=== PATIENT | female | born 1950 | race Caucasian/White ===

== ENCOUNTER 2024-01-07 17:44 | Observation (INO) | payer OTHER ==
[2024-01-07] MEDS ORDERED: ACETAMINOPHEN INJECTION 100 ML IVPB ONE (20:42)
[2024-01-07] MEDS ORDERED: METOCLOPRAMIDE HCL INJECTION 10 MG/2 ML VIAL ONE (20:42)
[2024-01-07] MEDS: ACETAMINOPHEN 1000 MG/100 ML BAG IVPB ONE (21:11)
[2024-01-07] MEDS: METOCLOPRAMIDE HCL INJECTION 10 MG/2 ML VIAL IVPUSH ONE (21:12)
[2024-01-07 21:22] LABS: BASO % 0.6 % (0-2.0); EOS % 0.9 % (0-4.5); HEMATOCRIT 38.5 % (32.4-45.2); HEMOGLOBIN 13.3 GM/dL (10.7-15.3); LYMPH % 23.1 % (8-40); MCH 29.9 pg (25.7-33.7); MCHC 34.5 g/dl (32.0-36.0); MEAN CELL VOLUME 86.5 fl (80-96); MEAN PLT VOLUME 7.2 fl (7.5-11.1); MONO % 8.8 % (3.8-10.2); NEUT % 66.6 % (42.8-82.8); PLATELET COUNT 261 10^3/uL (134-434); RBC 4.45 M/mm3 (3.60-5.2); RDW 14.4 % (11.6-15.6)
[2024-01-07] MEDS ORDERED: VALSARTAN 80 MG TABLET ONE (21:36)
[2024-01-07 21:40] LABS: POTASSIUM 4.7 mmol/L (3.5-5.1)
[2024-01-07 21:42] LABS: CALCIUM 9.8 mg/dL (8.5-10.1)
[2024-01-07 21:43] LABS: BLOOD UREA NITROGEN 12.9 mg/dL (7-18)
[2024-01-07 21:46] LABS: CREATININE 0.8 mg/dL (0.55-1.3)
[2024-01-07 21:48] LABS: BILIRUBIN,TOTAL 0.6 mg/dL (0.2-1); TOT PROT 7.7 g/dl (6.4-8.2)
[2024-01-07] MEDS: SODIUM CHLORIDE 0.9% 500 ML INFUS.BAG IV ONE (21:48)
[2024-01-07] MEDS: VALSARTAN 40 MG TABLET PO ONE (22:27)
[2024-01-08 07:46] LABS: POTASSIUM 4.2 mmol/L (3.5-5.1)
[2024-01-08 07:51] LABS: BLOOD UREA NITROGEN 10.2 mg/dL (7-18)
[2024-01-08 07:53] LABS: CALCIUM 9.1 mg/dL (8.5-10.1); MAGNESIUM 1.7 mg/dL (1.8-2.4)
[2024-01-08 07:54] LABS: CREATININE 0.7 mg/dL (0.55-1.3)
[2024-01-08] MEDS ORDERED: ONDANSETRON *ODT* 4 MG TABLET SL PRN (08:01)
[2024-01-08 08:12] LABS: BASO % 0.5 % (0-2.0); EOS % 1.1 % (0-4.5); HEMATOCRIT 36.3 % (32.4-45.2); HEMOGLOBIN 12.4 GM/dL (10.7-15.3); LYMPH % 31.2 % (8-40); MCHC 34.2 g/dl (32.0-36.0); MEAN CELL VOLUME 87.9 fl (80-96); MEAN PLT VOLUME 8.2 fl (7.5-11.1); MONO % 10.5 % (3.8-10.2); NEUT % 56.7 % (42.8-82.8); PLATELET COUNT 218 10^3/uL (134-434); RBC 4.13 M/mm3 (3.60-5.2); RDW 14.1 % (11.6-15.6); WHITE BLOOD COUNT 4.9 K/mm3 (4.0-10.0)
[2024-01-08] MEDS: amLODIPine BESYLATE 5 MG TABLET (FP) PO SCH (09:23)
[2024-01-08] MEDS ORDERED: LOSARTAN POTASSIUM 50 MG TABLET PO SCH (10:00)
[2024-01-08 11:06] LABS: URINE APPEARANCE CLEAR; URINE BILIRUBIN NEGATIVE (NEGATIVE); URINE COLOR YELLOW; URINE GLUCOSE (UA) 3+ (NEGATIVE); URINE KETONE NEGATIVE (NEGATIVE); URINE LEUK ESTERASE NEGATIVE (NEGATIVE); URINE NITRITE NEGATIVE (NEGATIVE); URINE PROTEIN NEGATIVE (NEGATIVE); URINE UROBILINOGEN 0.2 mg/dL (0.2-1.0)
[2024-01-08] MEDS: LOSARTAN POTASSIUM 50 MG TABLET PO SCH (11:10)
[2024-01-08] MEDS: MAGNESIUM SULFATE IN WATER 2 GM/50 ML IVPB IVPB ONE (11:11)
[2024-01-08] MEDS: SODIUM CHLORIDE 1,000 ML IV SCH (11:11)
[2024-01-08] MEDS: ACETAMINOPHEN 325 MG TABLET (FP) PO PRN (14:45)
[2024-01-08 16:41] VITALS: BMI 26.2
[2024-01-08 16:59] LABS: N-TERMINAL BNP 164.2 pg/ml (5-450)
[2024-01-08] MEDS: ATORVASTATIN CA 20 MG TABLET (FP) PO SCH (21:52)
[2024-01-09 07:46] LABS: HEMATOCRIT 36.7 % (32.4-45.2); HEMOGLOBIN 12.7 GM/dL (10.7-15.3); MCH 30.5 pg (25.7-33.7); MCHC 34.7 g/dl (32.0-36.0); MEAN CELL VOLUME 87.8 fl (80-96); MEAN PLT VOLUME 7.2 fl (7.5-11.1); PLATELET COUNT 232 10^3/uL (134-434); RBC 4.18 M/mm3 (3.60-5.2); RDW 14.4 % (11.6-15.6)
[2024-01-09 08:13] LABS: CALCIUM 9.3 mg/dL (8.5-10.1)
[2024-01-09 08:14] LABS: ALBUMIN 3.7 g/dl (3.4-5.0); BLOOD UREA NITROGEN 8.5 mg/dL (7-18)
[2024-01-09 08:17] LABS: CREATININE 0.8 mg/dL (0.55-1.3)
[2024-01-09 08:19] LABS: BILIRUBIN,TOTAL 0.7 mg/dL (0.2-1); TOT PROT 7.1 g/dl (6.4-8.2)
[2024-01-09] MEDS: PANTOPRAZOLE 40 MG TABLET PO SCH (09:48)
[2024-01-10 11:45] VITALS: RESP 18
[2024-01-10 15:07] VITALS: BP 136/65; PULSE 76; TEMP 98.4
== END 2024-01-10 05:00 | disposition home or self-care (01) ==
LOC: JER 17:44 → JERBED 23:18 → J4W 01-08 01:33
PROVIDERS: ADMIT Family Medicine; ATTEND Family Medicine
PROC: 3E0337Z Introduction of Electrolytic and Water Balance Substance into Peripheral Vein, Percutaneous Approach (ICD-10-PCS; principal; 2024-01-07)
PROC: 3E033NZ Introduction of Analgesics, Hypnotics, Sedatives into Peripheral Vein, Percutaneous Approach (ICD-10-PCS; 2024-01-07)
DX: R94.31 Abnormal electrocardiogram [ECG] [EKG] (principal); E11.22 Type 2 diabetes mellitus with diabetic chronic kidney disease; I12.9 Hypertensive chronic kidney disease with stage 1 through stage 4 chronic kidney disease, or unspecified chronic kidney disease; R11.2 Nausea with vomiting, unspecified; R53.1 Weakness; R42 Dizziness and giddiness; N18.9 Chronic kidney disease, unspecified; I11.0 Hypertensive heart disease with heart failure; E87.1 Hypo-osmolality and hyponatremia; R51.9 Headache, unspecified; I10 Essential (primary) hypertension; E78.5 Hyperlipidemia, unspecified
CPT/HCPCS: 0241U-QW; 36415; 70450-TC; 71045-TC-FY; 76700-TC; 80048; 80053; 80061; 81003; 82436; 82962; 83036; 83690; 83735; 83880; 83930; 83935; 84133; 84300; 84443; 84484; 85025; 85027; 87086; 93005; 93010; 93306-TC; 96365; 96375; 99285-25; G0378; J0131

== ENCOUNTER 2024-01-18 18:11 | Emergency (ER) | payer OTHER ==
[2024-01-18 18:21] VITALS: TEMP 98.5; BMI 26.9
[2024-01-18 20:03] VITALS: BP 152/69; PULSE 90; RESP 16
== END 2024-01-18 20:03 | disposition home or self-care (01) ==
LOC: JER 18:11
DX: R00.0 Tachycardia, unspecified (principal); R73.9 Hyperglycemia, unspecified
CPT/HCPCS: 82962; 93005; 93010; 99284-25